=== PATIENT | female | born 2000 | race Caucasian/White ===

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

== ENCOUNTER → 2019-06-05 | Outpatient (CLI) | payer BC ==
[2019-06-05 13:43] LABS: BASO % 0.4 % (0.0-1.0); EOS # 0.1 10^3/uL (0.0-0.5); EOS % 1.6 % (0.0-3.0); HEMATOCRIT 41.2 % (36.0-47.0); HEMOGLOBIN 13.6 g/dl (12.0-15.5); LYMPH % 28.8 % (24.0-44.0); MEAN CORPUSCULAR HEMOGLOBIN 28.5 pg (27.0-33.0); MEAN CORPUSCULAR VOLUME 86.4 fl (80.0-96.0); MONO # 0.5 10^3/uL (0.0-0.8); MONO % 6.9 % (0.0-5.0); NEUTROPHILS # 4.2 10^3/uL (1.5-8.5); NEUTROPHILS % 62.2 % (36.0-66.0); PLATELET COUNT, AUTOMATED 253 10^3/uL (150-450); RED BLOOD COUNT 4.77 10^6/uL (4.00-5.40); WHITE BLOOD COUNT 6.8 10^3/uL (4.0-10.0)
[2019-06-05 14:08] LABS: ALBUMIN 3.8 GM/DL (3.2-5.2); ALT/SGPT 17 U/L (12-78); BILIRUBIN,TOTAL 0.3 MG/DL (0.2-1.0); BLOOD UREA NITROGEN 10 MG/DL (7-18); CARBON DIOXIDE LEVEL 27 MEQ/L (21-32); CHLORIDE LEVEL 104 MEQ/L (98-107); GLUCOSE, FASTING 80 MG/DL (70-100); POTASSIUM SERUM 4.4 MEQ/L (3.5-5.1); RHEUMATOID FACTOR QUANT < 10.0 IU/ML (<15.0); SODIUM LEVEL 139 MEQ/L (136-145)
[2019-06-05 14:19] LABS: ERYTHROCYTE SEDIMENTATION RATE 7 mm/hr (0-20)
[2019-06-06 14:26] LABS: ANTINUCLEAR ANTIBODIES DIRECT Negative (Negative)
== END ==
LOC: M LAB 12:07
PROVIDERS: ATTEND Psychiatry & Neurology Neurology
DX: R51 Headache (principal)

== ENCOUNTER → 2019-12-21 | Outpatient (CLI) | payer BC | LOC: M LABSMTC 11:35 | PROVIDERS: ATTEND Family Medicine | DX: Z11.59 Encounter for screening for other viral diseases (principal); Z20.828 Contact with and (suspected) exposure to other viral communicable diseases ==

== ENCOUNTER → 2020-08-21 | Outpatient (CLI) | payer BC | LOC: M LABSMTC 10:12 | PROVIDERS: ATTEND Pediatrics | DX: Z20.828 Contact with and (suspected) exposure to other viral communicable diseases (principal) ==

== ENCOUNTER 2021-01-08 23:27 | Emergency (ER) | payer BC ==
[~2021-01-08] VITALS: Ht 160 cm; Wt 108.8 kg
[2021-01-09] MEDS ORDERED: MULTIVITAMIN -ADULT INJECTION 10 ML, THIAMINE INJection 100 MG, FOLIC ACID 1 MG in NS 1... IV ONE (00:10)
[2021-01-09] MEDS ORDERED: FAMOTIDINE INJ 20MG/2ML VIAL (S0028 PER 1) IVP ONE (00:10)
[2021-01-09] MEDS ORDERED: ONDANSETRON 4MG/2ML VIAL IV ONE (00:10)
[2021-01-09 00:30] LABS: BASO % 0.3 % (0.0-1.0); EOS # 0.1 10^3/uL (0.0-0.5); EOS % 1.1 % (0.0-3.0); HEMATOCRIT 40.7 % (36.0-47.0); HEMOGLOBIN 13.8 g/dl (12.0-15.5); LYMPH # 2.4 10^3/uL (1.5-5.0); MEAN CORPUSCULAR HEMOGLOBIN 28.3 pg (27.0-33.0); MEAN CORPUSCULAR HGB CONC 33.9 g/dl (32.0-36.5); MEAN CORPUSCULAR VOLUME 83.6 fl (80.0-96.0); MONO # 0.4 10^3/uL (0.0-0.8); MONO % 6.3 % (2.0-8.0); NEUTROPHILS # 3.7 10^3/uL (1.5-8.5); NEUTROPHILS % 56.1 % (36.0-66.0); PLATELET COUNT, AUTOMATED 233 10^3/uL (150-450); RED BLOOD COUNT 4.87 10^6/uL (4.00-5.40); WHITE BLOOD COUNT 6.6 10^3/uL (4.0-10.0)
[2021-01-09 00:59] LABS: ALT/SGPT 14 U/L (12-78); BILIRUBIN,DIRECT 0.1 MG/DL (0.0-0.2); BILIRUBIN,TOTAL 0.3 MG/DL (0.2-1.0); BLOOD UREA NITROGEN 9 MG/DL (7-18); CALCIUM LEVEL 9.1 MG/DL (8.5-10.1); CARBON DIOXIDE LEVEL 27 MEQ/L (21-32); CHLORIDE LEVEL 106 MEQ/L (98-107); CREATININE FOR GFR 0.84 MG/DL (0.55-1.30); GLOMERULAR FILTRATION RATE > 60.0 (>60); GLUCOSE, FASTING 122 MG/DL (70-100); LIPASE 74 U/L (73-393); POTASSIUM SERUM 3.3 MEQ/L (3.5-5.1); SODIUM LEVEL 140 MEQ/L (136-145); TOTAL PROTEIN 7.3 GM/DL (6.4-8.2)
[2021-01-09 01:32] LABS: URINE PREG TEST NEGATIVE (NEGATIVE)
[2021-01-09] MEDS ORDERED: POTASSIUM CHLORIDE 10% LIQ 20 MEQ/15 ML UDC PO ONE (02:25)
[2021-01-09 02:30] VITALS: BP 129/71
[2021-01-09] MEDS ORDERED: RANI15TA PO (02:37)
== END 2021-01-09 03:11 | disposition home or self-care (01) ==
LOC: M ED 23:27
DX: K29.20 Alcoholic gastritis without bleeding (principal); F33.9 Major depressive disorder, recurrent, unspecified; F41.9 Anxiety disorder, unspecified; Z79.899 Other long term (current) drug therapy; F12.20 Cannabis dependence, uncomplicated
CPT/HCPCS: 80048; 80076; 81001; 83690; 84703; 85025; 96365; 96366; 96375; 99284; J2405; J3411

== ENCOUNTER 2021-06-13 16:49 | Emergency (ER) | payer BC ==
[~2021-06-13] VITALS: Ht 160 cm; Wt 103.9 kg
[~2021-06-13 16:49] MED LIST: RANI15TA PO
[2021-06-13 20:54] LABS: HEMATOCRIT 44.2 % (36.0-47.0); HEMOGLOBIN 14.7 g/dl (12.0-15.5); MEAN CORPUSCULAR HEMOGLOBIN 28.7 pg (27.0-33.0); MEAN CORPUSCULAR HGB CONC 33.3 g/dl (32.0-36.5); MEAN CORPUSCULAR VOLUME 86.2 fl (80.0-96.0); PLATELET COUNT, AUTOMATED 285 10^3/uL (150-450); RED BLOOD COUNT 5.13 10^6/uL (4.00-5.40); WHITE BLOOD COUNT 11.5 10^3/uL (4.0-10.0)
[2021-06-13 20:58] LABS: APPEARANCE, URINE HAZY (CLEAR); BACTERIA, URINE AUTO NEGATIVE (NEGATIVE); BILIRUBIN, URINE AUTO NEGATIVE (NEGATIVE); BLOOD, URINE BLOOD 3+ (NEGATIVE); COLOR, URINE YELLOW (YELLOW); GLUCOSE, URINE (UA) AUTO NEGATIVE (NEGATIVE); KETONE, URINE AUTO NEGATIVE (NEGATIVE); LEUKOCYTE ESTERASE, URINE AUTO NEGATIVE (NEGATIVE); MUCUS, URINE SMALL (NEGATIVE); NITRITE, URINE AUTO NEGATIVE (NEGATIVE); PROTEIN, URINE AUTO 1+ mg/dL (NEGATIVE); RBC, URINE AUTO 124 /HPF (0-3); SPECIFIC GRAVITY URINE AUTO 1.026 (1.002-1.035); SQUAMOUS EPITHELIAL CELL UR AU 1 /HPF (0-6); UROBILINOGEN, URINE AUTO 0.2 mg/dL (0.0-2.0); WBC, URINE AUTO 2 /HPF (0-3)
[2021-06-13 21:19] LABS: BLOOD UREA NITROGEN 9 MG/DL (7-18); CALCIUM LEVEL 9.5 MG/DL (8.5-10.1); CARBON DIOXIDE LEVEL 27 MEQ/L (21-32); CHLORIDE LEVEL 106 MEQ/L (98-107); CREATININE FOR GFR 0.66 MG/DL (0.55-1.30); GLOMERULAR FILTRATION RATE > 60.0 (>60); GLUCOSE, FASTING 101 MG/DL (70-100); POTASSIUM SERUM 4.2 MEQ/L (3.5-5.1); SODIUM LEVEL 139 MEQ/L (136-145)
[2021-06-13 23:01] VITALS: BP 129/68
--- NOTE | 2021-06-13 23:40 | REPVR ---
PROCEDURE INFORMATION: Exam: US First Trimester, Transabdominal Exam date and time: 06/13/2021 10:46 PM Age: 20 years old Clinical indication: Lmp or gestational age (in weeks): 05/29/21; Antepartum complications; Bleeding; ; Additional info: Elev. Hcg, bleeding x 2 wks, cramping today TECHNIQUE: Imaging protocol: Real-time transabdominal obstetrical ultrasound of the maternal pelvis and a first trimester , less than 14 weeks 0 days, with image documentation. COMPARISON: No relevant prior studies available. FINDINGS: Uterus: Uterus measures 7.7 x 3.2 x 4.4 cm. Endometrium measures 5 mm. No uterine or endometrial masses. No intrauterine gestational sac is seen. Cervix: Unremarkable. Right adnexa: Right ovary is unremarkable. No hydrosalpinx, cyst, or mass. Left adnexa: 2.3 cm cyst in the left ovary. Left ovary is otherwise unremarkable. No hydrosalpinx or mass. Intraperitoneal space: No intraperitoneal free fluid. IMPRESSION: 1. No intrauterine or ectopic . 2. 2.3 cm cyst in the left ovary. Electronically signed by: Allen Light On 06/13/2021 23:39:58 PM
== END 2021-06-14 00:27 | disposition home or self-care (01) ==
LOC: M ED 16:49
DX: N93.9 Abnormal uterine and vaginal bleeding, unspecified (principal); R89.1 Abnormal level of hormones in specimens from other organs, systems and tissues; Z79.899 Other long term (current) drug therapy

== ENCOUNTER → 2021-06-16 | Outpatient (CLI) | payer BC | LOC: M LAB 09:49 | PROVIDERS: ATTEND Physician Assistant | DX: Z32.00 Encounter for pregnancy test, result unknown (principal) ==

== ENCOUNTER → 2021-06-22 | Outpatient (REF) | payer BC | LOC: M LAB REF 16:40 | PROVIDERS: ATTEND Obstetrics & Gynecology | DX: O03.9 Complete or unspecified spontaneous abortion without complication (principal) ==

== ENCOUNTER → 2021-07-01 | Outpatient (REF) | payer BC | LOC: M LAB REF 13:00 | PROVIDERS: ATTEND Obstetrics & Gynecology | DX: O03.9 Complete or unspecified spontaneous abortion without complication (principal) ==

== ENCOUNTER → 2021-07-07 | Outpatient (REF) | payer BC | LOC: M LAB REF 16:35 | PROVIDERS: ATTEND Advanced Practice Midwife | DX: O03.9 Complete or unspecified spontaneous abortion without complication (principal) ==

== ENCOUNTER → 2021-08-23 | Outpatient (REF) | payer BC | LOC: M WUC 15:39 | PROVIDERS: ATTEND Physician Assistant | DX: J06.9 Acute upper respiratory infection, unspecified (principal) ==

== ENCOUNTER 2022-06-22 13:43 | Emergency (ER) | payer BC ==
[~2022-06-22] VITALS: Ht 160 cm; Wt 100.9 kg
[2022-06-22 14:39] LABS: BASO % 0.2 % (0.0-1.0); EOS % 0.5 % (0.0-3.0); HEMATOCRIT 39.8 % (36.0-47.0); HEMOGLOBIN 13.5 g/dl (12.0-15.5); LYMPH # 1.5 10^3/uL (1.5-5.0); LYMPH % 18.4 % (24.0-44.0); MEAN CORPUSCULAR HEMOGLOBIN 29.1 pg (27.0-33.0); MEAN CORPUSCULAR HGB CONC 33.9 g/dl (32.0-36.5); MEAN CORPUSCULAR VOLUME 85.8 fl (80.0-96.0); MONO # 0.5 10^3/uL (0.0-0.8); MONO % 5.7 % (2.0-8.0); PLATELET COUNT, AUTOMATED 249 10^3/uL (150-450); RED BLOOD COUNT 4.64 10^6/uL (4.00-5.40)
[2022-06-22 15:22] LABS: BLOOD UREA NITROGEN 9 MG/DL (7-18); CALCIUM LEVEL 9.3 MG/DL (8.5-10.1); CARBON DIOXIDE LEVEL 26 MEQ/L (21-32); CHLORIDE LEVEL 105 MEQ/L (98-107); GLOMERULAR FILTRATION RATE > 60.0 (>60); GLUCOSE, FASTING 110 MG/DL (70-100); HCG, SERUM QUANTITATIVE 14 MIU/ML; POTASSIUM SERUM 3.7 MEQ/L (3.5-5.1); SODIUM LEVEL 137 MEQ/L (136-145)
[2022-06-22 18:27] VITALS: BP 130/81
== END 2022-06-22 18:37 | disposition home or self-care (01) ==
LOC: M ED 13:43
DX: O20.0 Threatened abortion (principal); O36.80X0 Pregnancy with inconclusive fetal viability, not applicable or unspecified; O34.11 Maternal care for benign tumor of corpus uteri, first trimester; N83.202 Unspecified ovarian cyst, left side; Z87.891 Personal history of nicotine dependence; Z3A.00 Weeks of gestation of pregnancy not specified

== ENCOUNTER → 2022-06-26 | Outpatient (CLI) | payer BC | LOC: M LAB 10:29 | PROVIDERS: ATTEND Obstetrics & Gynecology | DX: N93.9 Abnormal uterine and vaginal bleeding, unspecified (principal) ==

== ENCOUNTER 2022-09-05 18:28 | Emergency (ER) | payer BC ==
[~2022-09-05] VITALS: Ht 160 cm; Wt 97.7 kg
[2022-09-05] MEDS ORDERED: ACE65ERTAB PO (18:36)
[2022-09-05 22:43] VITALS: BP 120/67
== END 2022-09-05 23:44 | disposition left against medical advice (07) ==
LOC: M ED 18:28
DX: Z53.21 Procedure and treatment not carried out due to patient leaving prior to being seen by health care provider (principal)

== ENCOUNTER 2024-12-12 07:32 | Inpatient (IN) | payer BC ==
[~2024-12-12] VITALS: Ht 160 cm; Wt 117.2 kg
[2024-12-12] VITALS (33 sets, daily range): BP systolic 89–141; BP diastolic 54–95
[~2024-12-12 07:32] MED LIST changes: +ACE65ERTAB PO
[2024-12-12] MEDS ORDERED: PRENTAB9 PO (07:58)
[2024-12-12] MEDS ORDERED: HOME MED LIST COMPLETE! XX SCH (08:00)
[2024-12-12] MEDS ORDERED: LIDOCAINE 1% MDV 20ML VIAL INFIL PRN (09:20)
[2024-12-12] MEDS ORDERED: TRANEXAMIC ACID INJection 1,000 MG in NS 100 ML IV PRN (09:20)
[2024-12-12] MEDS ORDERED: METHYLERGONOVINE MALEATE 0.2MG/ML 1ML VIAL IM PRN (09:20)
[2024-12-12] MEDS ORDERED: OXYTOCIN DRIP 30 UNITS in IV 1 EA IV PRN (09:20)
[2024-12-12] MEDS ORDERED: LR 1,000 ML IV SCH (09:20)
[2024-12-12] MEDS ORDERED: CARBOPROST TROMETHAMINE 250 MCG/ML AMP IM PRN (09:20)
[2024-12-12 09:33] LABS: HEMATOCRIT 36.5 % (36.0-47.0); HEMOGLOBIN 12.6 g/dl (12.0-15.5); MEAN CORPUSCULAR HEMOGLOBIN 30.2 pg (27.0-33.0); MEAN CORPUSCULAR HGB CONC 34.5 g/dl (32.0-36.5); MEAN CORPUSCULAR VOLUME 87.5 fl (80.0-96.0); PLATELET COUNT, AUTOMATED 170 10^3/uL (150-450); RED BLOOD COUNT 4.17 10^6/uL (4.00-5.40); WHITE BLOOD COUNT 10.2 10^3/uL (4.0-10.0)
[2024-12-12] MEDS: LACTATED RINGER'S 1000 ML IV STA (09:38)
[2024-12-12 10:37] LABS: HIV 1&2 SCREEN NEGATIVE (NEGATIVE)
[2024-12-12 10:44] LABS: HEPATITIS C VIRUS ABY INDEX 0.03 INDEX (<0.8)
[2024-12-12] MEDS: OXYTOCIN DRIP 30 UNITS in IV 1 EA IV SCH (15:36)
[2024-12-12] MEDS: LR 1,000 ML IV SCH (15:36)
[2024-12-12] MEDS ORDERED: LR 500 ML IV PRN (19:45)
[2024-12-12] MEDS ORDERED: EPIDURAL/PCA KEYS XX PRN (19:45)
[2024-12-12] MEDS ORDERED: NALOXONE INJ 0.4MG/1ML VIAL IV PRN (19:45)
[2024-12-12] MEDS ORDERED: ePHEDrine SULFATE 25 MG/5 ML(5MG/ML) SYRINGE IVP PRN (19:45)
[2024-12-12] MEDS ORDERED: ONDANSETRON 4MG 2ML VIAL IV PRN (19:45)
[2024-12-12] MEDS ORDERED: diphenhydrAMINE 50MG/ML VIAL IV PRN (19:45)
[2024-12-12] MEDS: FENTANYL/ROPIVACAINE/NACL BAG 100 ML EPIDURAL SCH (20:01)
[2024-12-12] MEDS: ceFAZolin SODIUM 2 GM in DEXTROSE 5% (D5W) ADV/MINI-BAG 50 ML IV ONE (23:56)
[2024-12-12] MEDS: BICITRA 30ML SOLN UDC PO ONE (23:56)
[2024-12-12] MEDS: AZITHROMYCIN INJ 500 MG, VIAL MATE ADAPTER 1 EACH in NS 250 ML IV ONE (23:57)
[2024-12-13] VITALS (15 sets, daily range): BP systolic 98–130; BP diastolic 51–94; TEMP 98.9; O2SAT 96–100
[2024-12-13] MEDS ORDERED: KETOROLAC 30 MG/ML 1ML VIAL As Ordered ONE
[2024-12-13] MEDS ORDERED: METOCLOPRAMIDE INJ 10MG/2ML VIAL As Ordered ONE
[2024-12-13] MEDS ORDERED: ONDANSETRON 4MG 2ML VIAL As Ordered ONE
[2024-12-13] MEDS ORDERED: ACETAMINOPHEN 1000MG/100ML IV BAG As Ordered ONE
[2024-12-13] MEDS ORDERED: MORPHINE PRES-FREE INJ 10 MG/10 ML VIAL As Ordered ONE
[2024-12-13] MEDS ORDERED: OXYTOCIN 30UNITS IN 0.9% NaCl 500ML IV BAG As Ordered ONE (00:01)
[2024-12-13] MEDS ORDERED: MOM 30ML SUSPENSION UDC PO PRN (00:20)
[2024-12-13] MEDS ORDERED: SIMETHICONE 80MG CHEW TAB PO PRN (00:20)
[2024-12-13] MEDS ORDERED: PERCOCET 5MG/325MG TAB PO PRN ×2 (00:20)
[2024-12-13] MEDS ORDERED: RHOGAM 300MCG (1500IU) INJ IM SCH (00:20)
[2024-12-13] MEDS: OXYTOCIN DRIP 30 UNITS in IV 1 EA IV SCH (00:20)
[2024-12-13] MEDS ORDERED: CALCIUM CARBONATE 500 MG CHEW U/D PO PRN (00:20)
[2024-12-13] MEDS: LR 1,000 ML IV SCH ×2 (00:20→01:35)
[2024-12-13] MEDS ORDERED: IBUP80TA PO (00:29)
[2024-12-13] MEDS ORDERED: COLA100C5 PO (00:29)
[2024-12-13] MEDS ORDERED: ePHEDrine SULFATE 25 MG/5 ML(5MG/ML) SYRINGE As Ordered ONE (00:51)
[2024-12-13] MEDS ORDERED: PHENYLephrine 500MCG 5ML (100MCG/ML) SYRINGE As Ordered ONE (00:52)
[2024-12-13] MEDS ORDERED: NALOXONE INJ 0.4MG/1ML VIAL IV PRN ×2 (01:35)
[2024-12-13] MEDS ORDERED: PROMETHAZINE 25MG/ML 1ML VIAL IV PRN (01:35)
[2024-12-13] MEDS ORDERED: diphenhydrAMINE 50MG/ML VIAL IV PRN ×2 (01:35)
[2024-12-13] MEDS ORDERED: METOCLOPRAMIDE INJ 10MG/2ML VIAL IV PRN (01:35)
[2024-12-13] MEDS ORDERED: ONDANSETRON 4MG 2ML VIAL IV PRN ×2 (01:35)
[2024-12-13] MEDS ORDERED: fentaNYL 100 MCG/2 ML INJECTION IV PRN (01:35)
[2024-12-13] MEDS ORDERED: oxyCODONE 5MG TAB PO PRN (01:35)
[2024-12-13] MEDS ORDERED: **NOTE PATIENT COMMENT** MISC XX SCH (01:35)
[2024-12-13] MEDS ORDERED: NALBUPHINE HCL 10 MG/ML 1ML AMP IV PRN ×2 (01:35)
[2024-12-13] MEDS: SLF 3 ML SYR IV SCH (01:35)
[2024-12-13] MEDS: KETOROLAC 30 MG/ML 1ML VIAL IV SCH (05:37)
[2024-12-13] MEDS: PRENATAL VITAMINS CHEWABLE TABLET PO SCH (09:08)
[2024-12-13] MEDS: FERROUS SULFATE 325MG TAB PO SCH (09:08)
[2024-12-13] MEDS: DOCUSATE SODIUM 100MG CAPSULE PO SCH (09:08)
[2024-12-14] MEDS: IBUPROFEN 800 MG TAB PO SCH (01:47)
[2024-12-14 02:00] VITALS: BP 108/65; O2SAT 97
[2024-12-14 06:00] VITALS: BP 113/58; O2SAT 98
[2024-12-14 07:23] LABS: HEMATOCRIT 27.6 % (36.0-47.0); MEAN CORPUSCULAR HEMOGLOBIN 30.6 pg (27.0-33.0); MEAN CORPUSCULAR HGB CONC 34.1 g/dl (32.0-36.5); MEAN CORPUSCULAR VOLUME 89.9 fl (80.0-96.0); PLATELET COUNT, AUTOMATED 146 10^3/uL (150-450); RED BLOOD COUNT 3.07 10^6/uL (4.00-5.40); WHITE BLOOD COUNT 7.9 10^3/uL (4.0-10.0)
[2024-12-14 07:30] LABS: HEMOGLOBIN 9.4 g/dl (12.0-15.5)
[2024-12-14 10:09] VITALS: BP 119/70; O2SAT 99
[2024-12-15] MEDS ORDERED: MEASLES,MUMPS,RUBELLA VACCINE INJ (MMR-II) SC.IMMUN ONE (09:00)
== END 2024-12-14 16:50 | disposition home or self-care (01) | DRG 540 ==
LOC: M LDO 07:32 → M LDI 08:30 → M OBS 12-13 03:16
PROVIDERS: ADMIT Advanced Practice Midwife; ATTEND Obstetrics & Gynecology
PROC: 10D00Z1 Extraction of Products of Conception, Low, Open Approach (ICD-10-PCS; principal; 2024-12-12 23:56)
DX: O62.0 Primary inadequate contractions (principal); Z37.0 Single live birth; Z3A.39 39 weeks gestation of pregnancy

== ENCOUNTER → 2025-05-26 | Outpatient (REF) | payer BC ==
[~2025-05-26] MED LIST changes: -ACE65ERTAB PO; +ACET-1593 PO; +COLA100C5 PO; +IBUP80TA PO; +PRENTAB9 PO
== END ==
LOC: M PLALAB 07:21
PROVIDERS: ATTEND Obstetrics & Gynecology
DX: Z12.4 Encounter for screening for malignant neoplasm of cervix (principal)